=== PATIENT | female | born 1955 | race Caucasian/White ===

== ENCOUNTER 2018-02-23 02:34 | Emergency (ER) | payer OTHER ==
[~2018-02-23] VITALS: Wt 61.2 kg
[~2018-02-23 02:34] MED LIST: AMLO2.5T78; ASPI-650; BENA40TA56 PO; CALC-600 PO; CIME400T PO; FOLI-49; LORA-408; METO-448; NO NEW MEDS; OMEP20CA16; TRIA1TAB; VIT B6; VIT1TABL58
--- NOTE | 2018-02-23 02:47 | ERD ---
ER Documentation Chief Complaint Chief Complaint EPISTAXIS HPI The patient is a 62-year-old female, presenting to the ER because of bilateral nostril bleeding that began around 3 PM, she has not been sick recently. She denies similar symptoms previously. She denies syncope, near syncope, dizziness, neck pain, chest pain, dyspnea, abdominal pain, vomiting, dizzy, diarrhea. She does not smoke, drinks socially Past medical history: Anxiety, hypertension Past surgical history: Breast augmentation ROS All systems reviewed and are negative except as per history of present illness. Medications Home Meds Active Scripts Cephalexin* (Keflex*) 500 Mg Capsule, 500 MG PO QID for 5 Days, CAP Prov:SARA GRISSOM MD 02/23/18 Reported Medications [Joint Synergy] No Conflict Check, 1 TAB PO DAILY 02/23/18 Triamterene/Hctz* (Maxzide (37.5-25)*) 1 Each Tablet, 1 EACH PO QAM, #30 TAB 02/23/18 Wgvrwd-Oopclhij-Gftagge* ([place]a FARRIS* 36,000) 36,000 L-114,000-180,000 Unit Capsule.dr, 2 CAP PO WITH MEALS, CAP 02/23/18 Ginkgo Biloba* (Ginkgo Biloba*) 120 Mg Tablet, 60 MG PO DAILY, TAB 02/23/18 Cyclobenzaprine Hcl* (Cyclobenzaprine Hcl*) 10 Mg Tablet, 5 MG PO Q8 PRN for MUSCLE SPASMS, #60 TAB TAKE 1/2 TABLET BY MOUTH Q8H OR NEEDED 02/23/18 Docusate Sodium* (Docusate Sodium*) 100 Mg Capsule, 100 MG PO DAILY PRN for CONSTIPATION, #30 CAP 02/23/18 Gabapentin* (Gabapentin*) 300 Mg Capsule, 300 MG PO BID, #60 CAP 02/23/18 Omeprazole* (Omeprazole*) 20 Mg Capsule.dr, 20 MG PO DAILY, #30 CAP 02/23/18 Metoprolol Succinate* (Toprol XL*) 50 Mg Tab.er.24h, 50 MG PO DAILY, #30 TAB 02/23/18 Folic Acid* (Folic Acid*) 1 Mg Tablet 09/25/09 Vit B12/Pyridoxine Hcl/Vit B1 (Nervidox-6 Tablet) 1 Tab Tablet 09/25/09 Calcium (Calcium) 500 Mg Tablet, 500 MG PO DAILY 09/25/09 Omeprazole* (Omeprazole*) 20 Mg Capsule. 09/25/09 Cimetidine* (Cimetidine*) 400 Mg Tablet, 400 MG PO BID 09/25/09 Triamterene/Hydrochlorothiazid (Triamterene-Hctz 37.5-25 Tab) 1 Tab Tablet 09/25/09 Benazepril Hcl* (Benazepril Hcl*) 40 Mg Tablet, 40 MG PO DAILY 09/25/09 Discontinued Reported Medications [No New Meds] No Conflict Check 09/27/10 Lorazepam (Ativan) 1 Mg Tablet 09/28/09 [Vit B6] No Conflict Check 09/25/09 [Vit B6] No Conflict Check 09/25/09 Aspirin (Aspirin) 81 Mg Tablet 09/25/09 Amlodipine Besylate* (Amlodipine Besylate*) 2.5 Mg Tablet 09/25/09 Metoprolol Tartrate* (Lopressor*) 25 Mg Tab 09/25/09 Allergies Allergies: Coded Allergies: cefadroxil (Verified Allergy, Severe, itch all over, 02/23/18) PMhx/Soc History of Surgery: Yes (BREAST AUGMENTATION) Anesthesia Reaction: No Hx Neurological Disorder: No Hx Respiratory Disorders: No Hx Cardiac Disorders: No (HTN) Hx Psychiatric Problems: No Hx Miscellaneous Medical Probl: Yes (ARTHRITIS) Hx Alcohol Use: Yes Hx Substance Use: No Hx Tobacco Use: No Physical Exam Vitals Vital Signs Date Temp Pulse Resp B/P (MAP) Pulse Ox O2 O2 Flow FiO2 Time Delivery Rate 02/23/18 59 17 151/86 97 Room Air 03:48 (107) 02/23/18 63 19 204/103 98 Room Air 03:28 (136) 02/23/18 96.2 78 20 218/109 98 02:40 (145) Physical Exam Const: No acute distress. Head: Atraumatic. Eyes: Normal Conjunctiva. ENT: Normal External Ears, Nose and Mouth. Minimal left nostril bleeding, moderate right nostril bleeding, no posterior pharyngeal hemorrhage Neck: Full range of motion. No meningismus. Resp: Clear to auscultation bilaterally. Cardio: Regular rate and rhythm. Abd: Soft, non distended, normal bowel sounds, non tender. Skin: No petechiae or rashes. Back: No midline or flank tenderness. Ext: No cyanosis, or edema. Neur: Awake and alert. No focal deficit Psych: Normal Mood and Affect. Result Diagram: 02/23/18 0320 02/23/18 0320 Results 24 hrs Laboratory Tests Test 02/23/18 03:20 White Blood Count 5.2 10^3/ul Red Blood Count 4.18 10^6/ul Hemoglobin 12.1 g/dl Hematocrit 34.2 % Mean Corpuscular Volume 81.8 fl Mean Corpuscular Hemoglobin 28.9 pg Mean Corpuscular Hemoglobin Concent 35.4 g/dl Red Cell Distribution Width 12.3 % Platelet Count 222 10^3/UL Mean Platelet Volume 8.2 fl Immature Granulocytes % 0.400 % Neutrophils % 66.5 % Lymphocytes % 23.7 % Monocytes % 7.3 % Eosinophils % 1.7 % Basophils % 0.4 % Nucleated Red Blood Cells % 0.0 /100WBC Immature Granulocytes # 0.020 10^3/ul Neutrophils # 3.5 10^3/ul Lymphocytes # 1.2 10^3/ul Monocytes # 0.4 10^3/ul Eosinophils # 0.1 10^3/ul Basophils # 0.0 10^3/ul Nucleated Red Blood Cells # 0.0 10^3/ul Prothrombin Time 12.8 Sec Prothrombin Time Ratio 1.0 INR International Normalized Ratio 0.95 Activated Partial Thromboplast Time 33.4 Sec Sodium Level 129 mmol/L Potassium Level 3.1 mmol/L Chloride Level 92 mmol/L Carbon Dioxide Level 26 mmol/L Anion Gap 11 Blood Urea Nitrogen 13 mg/dl Creatinine 0.47 mg/dl Est Glomerular Filtrat Rate mL/min > 60 mL/min Glucose Level 126 mg/dl Calcium Level 9.1 mg/dl Current Medications Medications Dose Sig/Shantanu Start Time Status Last (Trade) Ordered Route PRN Stop Time Admin Dose Reason Admin Potassium 40 meq ONCE STAT 02/23/18 DC 02/23/18 Chloride PO 03:52 04:47 (Klor-Con 20) 02/23/18 03:53 Procedures/MDM Procedure: Risks, benefits, alternatives were explained to the patient who consented for procedure. Bilateral nostril clots were removed, the right nostril was packed with a rapid Rhino without any difficulty and she tolerated the procedure well MEDICAL MAKING DECISION: The patient is a 62-year-old female, presenting with acute anterior epistaxis, the right nostril was packed with a rapid Rhino with out any difficulty. She was treated with potassium chloride 40 mEq p.o. for acute hypokalemia with good response Departure Diagnosis: Primary Impression: Epistaxis Additional Impression: Hypokalemia Condition: Good Comments She was discharged with Keflex I discussed the findings with the patient. I advised the patient to return in 2- day for nasal packing removal, sooner if any concern Disclaimer: Inadvertent spelling and grammatical errors are likely due to EHR/dictation software use and do not reflect on the overall quality of patient care. Also, please note that the electronic time recorded on this note does not necessarily reflect the actual time of the patient encounter. SARA GRISSOM MD Feb 23, 2018 02:47
[2018-02-23] MEDS ORDERED: POTASSIUM CHLORIDE (SR) 20 MEQ TAB PO STA (03:52)
[2018-02-23] MEDS ORDERED: MAXZ25 PO (04:22)
[2018-02-23] MEDS ORDERED: GINK120T3 PO (04:22)
[2018-02-23] MEDS ORDERED: GABA300C16 PO (04:22)
[2018-02-23] MEDS ORDERED: METO-319 PO (04:22)
[2018-02-23] MEDS ORDERED: OMEP20CA16 PO (04:22)
[2018-02-23] MEDS ORDERED: LIPA1CAP45 PO (04:22)
[2018-02-23] MEDS ORDERED: CYCL10TA7 PO (04:22)
[2018-02-23] MEDS ORDERED: DOCU-159 PO (04:22)
[2018-02-23] MEDS ORDERED: [UNRECOGNIZED DRUG - OTHER] PO (04:26)
[2018-02-23] MEDS ORDERED: CEPH-443 PO (04:51)
[2018-02-23 04:52] VITALS: BP 166/85; PULSE 57; RESP 14
== END 2018-02-23 05:23 | disposition home or self-care (01) ==
LOC: E/R 02:34
DX: R04.0 Epistaxis (principal); E87.6 Hypokalemia; I10 Essential (primary) hypertension; Z79.82 Long term (current) use of aspirin
CPT/HCPCS: 30903; 80048; 85025; 85610; 85730; Z7502; Z7610